=== PATIENT | female | born 1980 | race Hispanic/Latino ===

== ENCOUNTER → 2024-06-20 08:46 | Outpatient (REF) | payer BC, SELFPAY | LOC: HWWDC 08:46 | PROVIDERS: ATTENDING PHYSICIAN Nurse Practitioner Family; REFERRING PHYSICIAN Obstetrics & Gynecology | DX: Z12.31 Encounter for screening mammogram for malignant neoplasm of breast (principal) | CPT/HCPCS: 77063; 77067 ==

== ENCOUNTER 2024-12-01 20:01 | Emergency (ER) | payer BC, SELFPAY ==
[2024-12-01 20:04] VITALS: BP 141/94
[2024-12-01 20:18] LABS: Hematocrit 40.2 % (37.0-47.0); Hemoglobin 13.2 g/dL (12.0-16.0); Mean Corp Hgb Conc. 32.8 g/dL (33.0-37.0); Mean Corpuscular Volume 89.3 fL (81.0-99.0); Nucleated Red Blood Cells % 0 %; Platelet Count 275 10^3/uL (130-400); Red Cell Dist. Width 13.4 % (11.5-14.5)
[2024-12-01 20:31] LABS: HCG, Serum Qualitative Screen Negative
[2024-12-01 20:36] LABS: ALT (SGPT) 29 U/L (0-35); AST (SGOT) 27 U/L (14-36); Albumin 4.1 g/dl (3.5-5.0); Alkaline Phosphatase 70 U/L (38-126); Blood Urea Nitrogen 16 mg/dl (7-17); Calcium 10.0 mg/dl (8.4-10.2); Carbon Dioxide 26 mmol/L (22-30); Chloride 106 mmol/L (98-107); Glucose 105 mg/dl (70-99); Lipase 396 U/L (23-300); Potassium 4.7 mmol/L (3.5-5.1); Sodium 135 mmol/L (135-145); Total Protein 7.2 g/dl (6.3-8.2); eGFR > 60.00
--- NOTE | 2024-12-01 23:04 | ED.GENMED ---
History of Present Illness
General
Chief Complaint: Abdominal Pain
Source: patient
Exam Limitations: none
Time Seen by Provider: 12/01/24 22:21
Nursing documentation reviewed up to this point in time: agreed with
History of Present Illness
History of Present Illness:
44-year-old female presenting to the emergency department today with concerns of intermittent abdominal pain over the past 3 days worsening today with associated nausea no vomiting no changes in bowel movements. Increasingly uncomfortable after
eating. Has had a cholecystectomy in the past.
Past History
Past History
ED Past Medical History: None
ED Past Surgical History: Other (Ectopic )
Social History
Tobacco: Non-smoker
Alcohol: Occasional
Drug: None
Living: with family
Phy Exam
Physical Exam
Physical Exam:
GENERAL: Alert , in no apparent distress
EYE: pupils equal and reactive
NECK: Supple, no significant adenopathy.
ENT: o/p clr, mmm.
CARDIAC: Regular rate and rhythm .
LUNGS: Clear breath sounds bilaterally, no acute respiratory distress, no wheezes/rales/rhonchi
ABDOMEN: Vague diffuse abdominal pain maximal to the epigastric region no guarding no peritoneal signs
NEUROLOGICAL: Alert and oriented, no focal neuro deficits
SKIN: Warm and dry, skin intact.
MUSCULOSKELETAL: No edema, well perfused.
PSYCH: Normal and appropriate interaction.
Course
Orders/Labs/Results
Orders:
Orders
12/01/24 20:06
Test Result ONCE
12/01/24 20:10
Complete Blood Count/With Diff Urgent
12/01/24 20:11
Comprehensive Metabolic Panel Urgent
HCG, Serum Qualitative Screen Urgent
Comment: Notify provider if positive test present
Lipase Urgent
12/01/24 22:55
Urinalysis Reflex To Culture Urgent
Date Specimen was Collected: 12/02/24
Time Specimen was Collected: 01:25
12/02/24 00:00
CT Abd/Pel (IV only)-DH only Urgent
Reason For Exam: diffuse abd pain
12/02/24 01:14
Famotidine [Pepcid] 20 mg IV NOW STA
Mag Hydrox/Al Hydrox/Simeth [Maalox] 30 ml Phenobarb/Hyoscy/Atropine/Scop [] 10 ml PO NOW
12/02/24 01:19
Phenobarb/Hyoscy/Atropine/Scop [] 10 ml .ROUTE .STK-MED ONE
Abnormal Lab Results
12/01/24 12/01/24
20:10 20:11
MCHC 32.8 L g/dL
(33.0-37.0)
Glucose 105 H mg/dl
(70-99)
Lipase 396 H U/L
(23-300)
12/01/24 20:10
12/01/24 20:11
Vital Signs
Initial and Last Documented VS:
Initial Vital Signs
Pulse Resp BP Pulse Ox
81 16 141/94 97
12/01/24 20:04 12/01/24 20:04 12/01/24 20:04 12/01/24 20:04
Last Documented Vital Signs
Temp Pulse Resp BP Pulse Ox
98.4 F 74 18 114/79 98
12/01/24 23:26 12/01/24 23:26 12/01/24 23:26 12/01/24 23:26 12/01/24 23:29
MDM/Problems Addressed
MDM/Problems Addressed:
44-year-old female presenting to the emergency department today with concerns of intermittent abdominal pain over the past few days maximal to the epigastric region. Associated nausea no vomiting. No changes in bowel movements. CT scan was
obtained to rule out any surgical process. This was normal without emergent findings. She was advised for GI follow-up. Return precautions given.
*Pulse Oximetry
SaO2: 97
Oxygen Mode of Delivery: Room air
Patient hypoxic: no (98)
*Critical Care Note
Total Time (30-74mins, 75-104mins- exclusive of procedures): Not Applicable
ED Attending Note
-
Portions of this chart may have been created with voice recognition software.� Occasional wrong word or��sound alike� substitutions may have occurred due to the inherent limitations of voice recognition software.
Discharge Plan
Departure
Patient Disposition: Home (Routine Discharge)
Date of Disposition: 12/02/24
Time of Disposition: 01:34
Patient with high blood pressure during this ER visit?: No
Condition: Good
Covid-19: Not Applicable
Discharge Problem:
Abdominal pain
Instructions: Abdominal Pain
Prescriptions:
New
pantoprazole 40 mg tablet,delayed release (DR/EC)
40 mg PO DAILY 14 Days Qty: 14 0RF
No Action
norethindrone-e.estradiol-iron [Blisovi 24 Fe] 1 EACH tablet
1 ea PO DAILY
polyethylene glycol 3350 17 GRAMS powder in packet
17 grams PO DAILY Qty: 0 0RF
Rx Instructions:
use if no BM for >1d
Over the counter, no Rx needed
hydrocodone-acetaminophen 1 TABLET tablet
1 - 2 tab PO Q4HPRN PRN (Reason: mod-severe pain) Qty: 30 0RF
famotidine 20 MG tablet
20 mg PO BID Qty: 20 0RF
Rx Instructions:
use while taking Aleve
Equivalent to [id number], no Rx needed
naproxen 500 MG tablet
500 mg PO BID Qty: 30 0RF
Rx Instructions:
same as Aleve, no prescription needed
Use for next 3-4 every 12h, then just if needed
amoxicillin-pot clavulanate 1 TABLET tablet
1 tab PO Q12 Qty: 10 0RF
naproxen 500 MG tablet
500 mg PO BID Qty: 20 0RF
Referrals:
Arlin Irizarry MD [Active, Gastroenterology] - Follow up in 10 days
Marsha Mueller CRNP [Family Provider, Family Practice]
Activity Restrictions/Additional Instructions:
You came to the emergency department today with concerns of abdominal pain.. Reassuring assessment. Please take the prescribed medication and follow-up closely with GI if symptoms are ongoing. Return for any worsening, new or concerning symptoms.
Interventions
Interventions:
*Risk Screen - Suicide Last Done: 12/01/24 20:04
*General Assessment Last Done: 12/01/24 20:04
*Neglect/Abuse Screening Last Done: 12/01/24 20:04
*ED- Fall Risk Assessment Last Done: 12/01/24 23:25
*ED COVID-19 Vaccine History Last Done: 12/01/24 23:25
ZC-Akfdzj-Brufuukgvz Assessment Last Done: 12/01/24 23:28
Discharge Date and Time
Print Language: GERMAN
[2024-12-01 23:26] VITALS: BP 114/79
[2024-12-02] MEDS: PEPCID 20 MG IV (01:21)
[2024-12-02] MEDS: MAALOX 30 PO (01:22)
[2024-12-02 01:40] LABS: Urine Character Clear (Clear)
[2024-12-02 02:06] LABS: Urine Red Blood Cell 0-2 /HPF (0-2)
[2024-12-02 02:07] LABS: Urine White Cell None Seen /HPF (0-5)
== END 2024-12-02 01:47 | disposition home or self-care (01) ==
LOC: EMR 20:01
PROVIDERS: Emergency Medicine; Physician Assistant; EMERGENCY PHYSICIAN Emergency Medicine; FAMILY PHYSICIAN Nurse Practitioner Family
DX: R10.9 Unspecified abdominal pain (principal); R11.0 Nausea; K21.9 Gastro-esophageal reflux disease without esophagitis; Z87.891 Personal history of nicotine dependence; Z90.49 Acquired absence of other specified parts of digestive tract; Z91.018 Allergy to other foods
CPT/HCPCS: 99284; 96374; 74177; 80053; 81003; 81015; 83690; 84703; 85025; Q9967